=== PATIENT | female | born 2000 | race Caucasian/White ===

== ENCOUNTER 2021-11-20 06:39 | Emergency (ER) | payer BC, MEDICAID ==
[~2021-11-20] VITALS: Ht 162.6 cm; Wt 115.2 kg
[2021-11-20 06:44] VITALS: BP_SYST 138
--- NOTE | 2021-11-20 06:48 | NUR ---
PT HERE FOR SORETHROAT D/T SWOLLEN TOSILS. PATIENT STATED THAT IT STARTED YESTERDAY AROUND 0700 AM. PT DENIES FEVER. SHE STATED THAT SHE HAD THIS SYMPTOMS A MONTH AGO. DENIES N/V. DENIES COUGH AND CONGESTION. PMH;DENIES PT AAOX4, DENIES SOB AND NOT IN ANY DISTRESS AT THIS TIME.
--- NOTE | 2021-11-20 07:30 | NUR ---
ER at bedside examining patient.
[2021-11-20] MEDS: DEXAMETHASONE SOD PHOSPHATE 10 MG/ML VIAL IM ONE (08:08)
[2021-11-20 08:13] VITALS: BP_SYST 122
--- NOTE | 2021-11-20 08:14 | NUR ---
Patient given written and verbal discharge instructions and verbalizes understanding. ER MD discussed with patient the results and treatment provided. Patient in stable condition. ID arm band removed. Patient educated on pain management and to follow up with PMD. Pain Scale 0/10. Opportunity for questions provided and answered. Medication side effect fact sheet provided.
== END 2021-11-20 08:14 | disposition home or self-care (01) ==
LOC: SED 06:39
DX: J02.9 Acute pharyngitis, unspecified (principal); Z79.899 Other long term (current) drug therapy
CPT/HCPCS: 99283; 96372; J1100

== ENCOUNTER 2022-05-01 15:59 | Emergency (ER) | payer BC, MEDICAID ==
[~2022-05-01] VITALS: Ht 162.6 cm; Wt 113.4 kg
[2022-05-01 16:40] VITALS: BP_SYST 136
[2022-05-01] MEDS ORDERED: DEXAMETHASONE SOD PHOSPHATE 10 MG/ML VIAL IM ONE (17:00)
[2022-05-01] MEDS ORDERED: CLIN-142 PO (18:20)
[2022-05-01 18:51] VITALS: BP_SYST 122
[2022-05-01] MEDS ORDERED: CLINDAMYCIN HCL 150 MG CAPSULE ONE (18:52)
[2022-05-01] MEDS ORDERED: CLINDAMYCIN HCL 150 MG CAPSULE PO ONE (19:00)
== END 2022-05-01 18:51 | disposition home or self-care (01) ==
LOC: SED 15:59
DX: J03.90 Acute tonsillitis, unspecified (principal); R06.02 Shortness of breath; Z79.899 Other long term (current) drug therapy
CPT/HCPCS: 99283; 96372; J1100